=== PATIENT | female | born 1995 | race Two or more races ===

== ENCOUNTER 2020-01-27 16:20 | Observation (INO) | payer SELFPAY | END 2020-01-27 17:00 | disposition home or self-care (01) | DRG 833 | LOC: LDRP 16:20 | PROVIDERS: ADMIT Obstetrics & Gynecology; ATTEND Obstetrics & Gynecology | DX: O26.892 Other specified pregnancy related conditions, second trimester (principal); R10.31 Right lower quadrant pain; Z3A.20 20 weeks gestation of pregnancy | CPT/HCPCS: 81002; G0378 ==

== ENCOUNTER 2020-05-21 10:46 | Observation (INO) | payer MEDICAID | END 2020-05-21 12:30 | disposition home or self-care (01) | LOC: LDRP 10:46 | PROVIDERS: ADMIT Obstetrics & Gynecology; ATTEND Obstetrics & Gynecology | DX: O36.5930 Maternal care for other known or suspected poor fetal growth, third trimester, not applicable or unspecified (principal); Z3A.37 37 weeks gestation of pregnancy | CPT/HCPCS: 59025; 76818; 81002; G0378 ==

== ENCOUNTER 2020-05-27 10:36 | Observation (INO) | payer MEDICAID ==
[2020-05-27] MEDS ORDERED: PREN-96 PO (11:14)
== END 2020-05-27 11:45 | disposition home or self-care (01) ==
LOC: LDRP 10:36
PROVIDERS: ADMIT Specialist; ATTEND Specialist
DX: O36.5930 Maternal care for other known or suspected poor fetal growth, third trimester, not applicable or unspecified (principal); Z3A.38 38 weeks gestation of pregnancy
CPT/HCPCS: 59025; 76818; 81002; G0378

== ENCOUNTER 2020-06-01 09:05 | Observation (INO) | payer MEDICAID ==
[~2020-06-01 09:05] MED LIST: PREN-96 PO
== END 2020-06-01 11:25 | disposition home or self-care (01) ==
LOC: LDRP 09:05
PROVIDERS: ADMIT Specialist; ATTEND Specialist
DX: O62.9 Abnormality of forces of labor, unspecified (principal); O24.419 Gestational diabetes mellitus in pregnancy, unspecified control; O36.5930 Maternal care for other known or suspected poor fetal growth, third trimester, not applicable or unspecified; Z3A.38 38 weeks gestation of pregnancy
CPT/HCPCS: 59025; 76818; 81002; G0378

== ENCOUNTER 2020-06-04 09:15 | Observation (INO) | payer MEDICAID ==
[2020-06-04 10:20] LABS: Urine Bacteria FEW /hpf (None Seen); Urine Blood TRACE /uL (Negative); Urine Hyaline Cast FEW /lpf (0 - 2); Urine Mucus FEW (None Seen); Urine Specific Gravity 1.017 (1.001-1.035); Urine WBC 383 /hpf (0 - 5); Urine WBC Clumps PRESENT /hpf (None Seen)
== END 2020-06-04 10:40 | disposition home or self-care (01) ==
LOC: LDRP 09:15
PROVIDERS: ADMIT Specialist; ATTEND Specialist
DX: O36.5930 Maternal care for other known or suspected poor fetal growth, third trimester, not applicable or unspecified (principal); O62.9 Abnormality of forces of labor, unspecified; Z3A.39 39 weeks gestation of pregnancy
CPT/HCPCS: 59025; 76818; 81001; 81002; G0378

== ENCOUNTER 2020-06-06 17:35 | Observation (INO) | payer MEDICAID | END 2020-06-06 19:50 | disposition home or self-care (01) | LOC: LDRP 17:35 | PROVIDERS: ADMIT Specialist; ATTEND Specialist | DX: O62.9 Abnormality of forces of labor, unspecified (principal); Z3A.39 39 weeks gestation of pregnancy | CPT/HCPCS: 59025; 81002; G0378 ==

== ENCOUNTER 2020-06-08 09:10 | Observation (INO) | payer MEDICAID | END 2020-06-08 10:50 | disposition home or self-care (01) | LOC: LDRP 09:10 | PROVIDERS: ADMIT Specialist; ATTEND Specialist | DX: O36.5930 Maternal care for other known or suspected poor fetal growth, third trimester, not applicable or unspecified (principal); O62.9 Abnormality of forces of labor, unspecified; Z91.040 Latex allergy status; Z3A.39 39 weeks gestation of pregnancy | CPT/HCPCS: 59025; 76818; 81002; G0378 ==

== ENCOUNTER 2020-06-09 18:53 | Inpatient (IN) | payer MEDICAID ==
[~2020-06-09] VITALS: Ht 30.5 cm; Wt 0.5 kg
[2020-06-09] MEDS ORDERED: LACT. RINGERS/OXYTOCIN 20UNITS 1,000 ML IV SCH (19:01)
[2020-06-09] MEDS ORDERED: WITCH HAZEL-GLYCERIN PAD TOP PRN (19:15)
[2020-06-09] MEDS ORDERED: PHISODERM TOP SOLN 240ML BTL TOP PRN (19:15)
[2020-06-09] MEDS ORDERED: METHYLERGONOVINE MALEATE 0.2 MG/ML AMP IM PRN (19:15)
[2020-06-09] MEDS ORDERED: DERMOPLAST 60ML BOTTLE TOP PRN (19:15)
[2020-06-09] MEDS ORDERED: LIDOCAINE 2%HCL (LOCAL ANESTH.) INJ 20ML MDV ID ONE (19:15)
[2020-06-09] MEDS: LACTATED RINGER'S 1,000 ML IV SCH (19:25)
[2020-06-09 19:57] LABS: Basophils # (auto) 0 10 ^3/uL (0-0.2); Basophils % (auto) 0.1 % (0.0-2.0); Eosinophils # (auto) 0 10 ^3/uL (0-0.8); Hematocrit 38.6 % (36.0-46.0); Hemoglobin 12.8 g/dL (12.2-16.2); Lymphocytes # (auto) 1.9 10 ^3/uL (0.4-5.4); Lymphocytes % (auto) 15.2 % (10.0-50.0); Mean Corpuscular Hemoglobin 31.2 pg (28.0-32.0); Mean Corpuscular Hgb Conc. 33.3 g/dL (32.0-36.0); Mean Corpuscular Volume 93.9 fL (80.0-100.0); Monocytes # (auto) 0.8 10 ^3/uL (0-1.3); Monocytes % (auto) 6.2 % (0.0-12.0); Neutrophils % (auto) 78.5 % (37.0-80.0); Nucleated Red Blood Cells % 0.1 %; Platelet Count (auto) 238 10^3/uL (140-450); Red Blood Cells 4.11 10^6/uL (4.0-5.20); Red Cell Distribution Width 12.9 % (11.8-14.3); White Blood Cell 12.7 10^3/uL (4.4-10.8)
[2020-06-09 19:57] LABS: Urine Bacteria NONE SEEN /hpf (None Seen); Urine Blood Negative /uL (Negative); Urine Specific Gravity 1.002 (1.001-1.035); Urine WBC 1 /hpf (0 - 5)
[2020-06-09] MEDS ORDERED: miSOPROStol 50 MCG per PRE-CUT 1/2 TAB PO PRN (20:00)
[2020-06-09] MEDS ORDERED: PROMETHAZINE HCL 25 MG/ML 1ML IV PRN (20:00)
[2020-06-09] MEDS ORDERED: BUTORPHANOL TARTRATE 2 MG/1 ML VIAL IV PRN (20:00)
[2020-06-09 20:07] LABS: INR 0.87 (0.9-1.15); Partial Thromboplastin Time 27.8 sec (23.0-31.2)
[2020-06-09 20:09] LABS: Calcium 7.8 mg/dL (8.5-10.1); Potassium 3.4 mmol/L (3.5-5.1)
[2020-06-09 20:10] LABS: Alcohol, Urine < 3.0 mg/dL (0-10); Amphetamine Screen, Urine NEGATIVE (NEGATIVE); Barbiturate Scree,Urine NEGATIVE (NEGATIVE); Benzodiazephine Screen, Urine NEGATIVE (NEGATIVE); Cannabinoid Screen, Urine NEGATIVE (NEGATIVE); Cocaine Screen, Urine NEGATIVE (NEGATIVE); Opiate Scree,Urine NEGATIVE (NEGATIVE); Phencyclidine Screen, Urine NEGATIVE (NEGATIVE)
[2020-06-09 20:15] LABS: Albumin 2.5 g/dL (3.4-5.0); BUN/Creatinine Ratio 17.2; Bilirubin, Total 0.2 mg/dL (0.2-1.0); Total Protein 5.8 g/dL (6.4-8.2)
[2020-06-10] MEDS ORDERED: LACT. RINGERS/OXYTOCIN 20UNITS 1,000 ML IV SCH (00:22)
[2020-06-10] MEDS: LACTATED RINGER'S 1,000 ML IV SCH (00:51)
[2020-06-10] MEDS ORDERED: ACETAMINOPHEN 325 MG TAB PO PRN (11:30)
[2020-06-10] MEDS ORDERED: IBUPROFEN 600 MG TAB PO PRN (11:30)
--- NOTE | 2020-06-10 12:41 | NUR ---
Ambulation: Patient OOB with standby assistance by RN. Patient ambulated to bathroom with steady gait. Patient able to void without difficulty. Void 800ml clear yellow urine. No clots noted on pad or after void in basin. [facility]icare teaching provided with returned demonstration by patient. Sponge bath given. Clean gown provided. Patient transported to room 7A via wheelchair. Patient ambulated to bed with steady gait and no distress noted. Pain 0/10. Reorientated to room, updated on plan of care. Verbalized understanding.
[2020-06-10 12:45] VITALS: BP 116/68
[2020-06-10] MEDS: ceFAZolin 1GM/50ML 50 ML IV SCH ×2 (14:11→22:19)
[2020-06-10 15:00] VITALS: BP 136/74
[2020-06-10 19:00] VITALS: BP 115/64
[2020-06-10 23:00] VITALS: BP 101/56
[2020-06-11 03:10] VITALS: BP 100/64
[2020-06-11 05:08] LABS: RPR Non Reactive (Non Reactive)
[2020-06-11] MEDS: ceFAZolin 1GM/50ML 50 ML IV SCH (05:58)
[2020-06-11 07:00] VITALS: BP 114/64
[2020-06-11 11:10] VITALS: BP 108/68
--- NOTE | 2020-06-11 12:45 | NUR ---
Discharge: Discharge instructions given as ordered. Pt encouraged to follow up with [facility], Dr Mackey as instructed. All questions and concerns addressed. Patient verbalized understanding. Medication reconciliation completed and copy given to patient. All required/requested vaccines given and copies of vaccinations given to patient. Patient encouraged to prepare to depart unit.
--- NOTE | 2020-06-11 12:55 | NUR ---
IV removal IV DC'd with clean sterile technique, catheter fully intact. Pressure dressing applied to site. Patient tolerated well. Addendum: 06/11/20 at 1336 by EDNA MAGUIRE RN Amended: Links added.
--- NOTE | 2020-06-11 13:28 | NUR ---
Discharge: Patient taken to vehicle via ambulation with all personal belongings, accompanied by staff and family member. No distress noted at time of departure, no adverse changes in status since initial assessment.
--- NOTE | 2020-06-11 13:28 | NUR ---
Discharge: Patient taken to vehicle via wheelchair with all personal belongings, accompanied by staff and family member. No distress noted at time of departure, no adverse changes in status since initial assessment.
== END 2020-06-11 13:28 | disposition home or self-care (01) | DRG 560 ==
LOC: LDRP 18:53
PROVIDERS: ADMIT Obstetrics & Gynecology; ATTEND Obstetrics & Gynecology
PROC: 10D07Z6 Extraction of Products of Conception, Vacuum, Via Natural or Artificial Opening (ICD-10-PCS; principal; 2020-06-10)
PROC: 0KQM0ZZ Repair Perineum Muscle, Open Approach (ICD-10-PCS; 2020-06-10)
PROC: 0W8NXZZ Division of Female Perineum, External Approach (ICD-10-PCS; 2020-06-10)
DX: O70.1 Second degree perineal laceration during delivery (principal); Z37.0 Single live birth; Z3A.39 39 weeks gestation of pregnancy; Z20.828 Contact with and (suspected) exposure to other viral communicable diseases
CPT/HCPCS: 36415; 59025; 59409; 80053; 80307; 81001; 84112; 85025; 85610; 85730; 86592; 86850; 86900; 86901; 87426; 96360; 96361; G0378; J0690; J2590

== ENCOUNTER 2021-04-11 09:28 | Emergency (ER) | payer MEDICAID ==
[~2021-04-11] VITALS: Ht 157.5 cm; Wt 46.3 kg
[2021-04-11 09:29] VITALS: BP 110/72
== END 2021-04-11 10:39 | disposition home or self-care (01) ==
LOC: ER 09:28
DX: S09.93XA Unspecified injury of face, initial encounter (principal); R51.9 Headache, unspecified; Z79.899 Other long term (current) drug therapy; X58.XXXA Exposure to other specified factors, initial encounter; Y93.41 Activity, dancing; Y92.89 Other specified places as the place of occurrence of the external cause; Y99.8 Other external cause status
CPT/HCPCS: 70486

== ENCOUNTER 2021-11-22 00:34 | Emergency (ER) | payer MEDICAID ==
[~2021-11-22] VITALS: Ht 162.6 cm; Wt 44.0 kg
[2021-11-22] MEDS ORDERED: LIDO2SOL18 MT (03:30)
[2021-11-22] MEDS ORDERED: CHLO0.1238 MT (03:30)
[2021-11-22 03:40] VITALS: BP 104/67
== END 2021-11-22 03:41 | disposition home or self-care (01) ==
LOC: ER 00:34
DX: K12.0 Recurrent oral aphthae (principal); Z79.899 Other long term (current) drug therapy